=== PATIENT | female | born 1975 | race African-American/Black ===

== ENCOUNTER 2020-03-20 01:50 | Inpatient (IN) ==
[2020-03-20] MEDS ORDERED: ONDANSETRON 4 MG/2 ML VIAL IV STA (02:10)
[2020-03-20] MEDS ORDERED: ONDANSETRON 4 MG/2 ML VIAL ONE (02:10)
[2020-03-20] MEDS ORDERED: SODIUM CHLORIDE 0.9% 500 ML IV STA (02:19)
[2020-03-20 03:09] LABS: Alanine Aminotransferase 56 U/L (13-56); Albumin 3.5 G/DL (3.4-5.0); Alkaline Phosphatase 57 U/L (45-117); Aspartate Amino Transferase 42 U/L (0-37); Bilirubin,Total < 0.39 MG/DL (0.2-1.0); Blood Urea Nitrogen 18 MG/DL (7-18); Calcium 9.3 MG/DL (8.5-10.1); Estimated Glom Filtration Rate 78 ML/MIN; Glucose 271 MG/DL (74-106); Osmolality,Calculated 281.1 MOS/KG (273-304); Total Protein 7.8 G/DL (6.4-8.3); Troponin I < 0.015 NG/ML (0.00-0.045)
[2020-03-20] MEDS ORDERED: SODIUM CHLORIDE 0.9% 1,000 ML IV STA (03:11)
[2020-03-20] MEDS ORDERED: VANCOMYCIN INJ 1,000 MG in SODIUM CHLORIDE 0.9% 250 ML IV STA (03:11)
[2020-03-20 03:40] LABS: Barbiturates Screen,Urine Negative (Negative); Benzodiazepines Screen,Urine Negative (Negative); Cannabinoid Screen,Urine Negative (Negative); Opiate Screen,Urine Negative (Negative); Phencyclidine Screen,Urine Negative (Negative)
[2020-03-20 03:44] LABS: Bacteria,Urine Occasional /HPF (Few); Granular Casts,Urine 1 /LPF (0-1); Hyaline Casts,Urine 25 /LPF (0-3); Mucus,Urine Occasional /LPF (Occasional); RBC,Urine <1 /HPF (0-4); Squamous Epithelial Cell,Urine Occasional /HPF (0-10); WBC,Urine 1 /HPF (0-6)
[2020-03-20 03:47] LABS: Apearance,Urine Clear (Clear); Urine Color Light Yellow (Yellow)
[2020-03-20 03:48] LABS: Glucose,Urine (UA) Negative (Negative); Protein,Urine 30 MG/DL
[2020-03-20 04:00] LABS: Basophils % 0.1 % (0.0-0.8); Hematocrit 36.3 VOL% (35.7-47.0); Hemoglobin 11.8 GM/DL (12.0-16.0); Immature Granulocytes % 1.4 %; Immature Granulocytes Absolute 0.23 #; Lymphocytes # 1.4 10*3/uL (1.4-4.0); Lymphocytes % 8.2 % (21.3-54.2); Mean Corpuscular HGB Conc 32.5 GM/DL (32-36); Mean Corpuscular Volume 91.2 FL (87-102); Mean Platelet Volume 10.4 FL (9.6-12.0); Monocytes % 4.7 % (1.7-12.7); NRBC # 0.02 10*3/uL; Neutrophils % 85.6 % (38.7-73.9); Platelet Count 256 T/CUMM (130-400); Red Blood Count 3.98 MC/CUMM (3.8-5.5); Red Cell Distribution Width 12.3 % (9.3-17.3); White Blood Count 16.4 T/CUMM (4-12)
[2020-03-20 04:01] LABS: Bilirubin,Urine Negative (Negative); Blood, Urine 50 mg/dL (Negative); Nitrite,Urine Negative (Negative); Urine Urobilinogen < 0.2 EU/DL (0.2-1.0)
[2020-03-20 05:06] LABS: Platelet Estimate Adequate
[2020-03-20] MEDS ORDERED: ACETAMINOPHEN 325 MG TABLET PO PRN (05:21)
[2020-03-20] MEDS ORDERED: DEXTROSE 50% 25 GM/50 ML VIAL IV PRN (05:21)
[2020-03-20] MEDS ORDERED: GLUCAGON 1 MG VIAL IM PRN (05:21)
[2020-03-20] MEDS ORDERED: ONDANSETRON 4 MG/2 ML VIAL IV PRN (05:21)
[2020-03-20] MEDS ORDERED: LORazepam 2 MG/1 ML VIAL IV PRN (05:21)
[2020-03-20] MEDS ORDERED: MORPHINE 4 MG/1 ML VIAL IV PRN (05:21)
[2020-03-20] MEDS ORDERED: VANCOMYCIN INJ 1,000 MG in SODIUM CHLORIDE 0.9% 250 ML IV ONE (06:30)
[2020-03-20] MEDS: SODIUM CHLORIDE 0.9% 1,000 ML IV SCH ×3 (07:35→20:38)
[2020-03-20] MEDS: INSULIN REGULAR 100 UNIT/ML SUBCUT SCH ×4 (08:07→23:18)
[2020-03-20] MEDS: PANTOPRAZOLE 40 MG TABLET PO SCH (09:00)
[2020-03-20 11:02] LABS: Apearance,Urine Slightly Hazy (Clear); Bacteria,Urine Occasional /HPF (Few); Bilirubin,Urine Negative (Negative); Blood, Urine Negative (Negative); Glucose,Urine (UA) Negative (Negative); Ketones,Urine Negative (Negative); Mucus,Urine Occasional /LPF (Occasional); Nitrite,Urine Negative (Negative); Protein,Urine Negative; RBC,Urine 1 /HPF (0-4); Squamous Epithelial Cell,Urine Occasional /HPF (0-10); Urine Color Straw (Yellow); Urine Specific Gravity 1.011 (1.001-1.035); Urine Urobilinogen < 2.0 EU/DL (0.2-1.0); WBC,Urine 1 /HPF (0-6)
[2020-03-20] MEDS: levETIRAcetam 500 MG TABLET PO SCH ×2 (13:09→20:12)
[2020-03-20] MEDS: DOCUSATE SODIUM 100 MG CAPSULE PO SCH ×2 (13:14→20:11)
[2020-03-20] MEDS ORDERED: VANCOMYCIN INJ 2,000 MG in SODIUM CHLORIDE 0.9% 500 ML IV SCH (21:00)
[2020-03-21] MEDS: SODIUM CHLORIDE 0.9% 1,000 ML IV SCH (04:27)
[2020-03-21] MEDS: INSULIN REGULAR 100 UNIT/ML SUBCUT SCH ×3 (05:40→17:39)
[2020-03-21 05:46] LABS: Basophils % 0.1 % (0.0-0.8); Eosinophils # 0.1 10*3/uL (0.0-0.87); Eosinophils % 1.1 % (0.00-10.9); Hematocrit 32.1 VOL% (35.7-47.0); Hemoglobin 10.3 GM/DL (12.0-16.0); Immature Granulocytes % 0.5 %; Immature Granulocytes Absolute 0.05 #; Lymphocytes # 1.7 10*3/uL (1.4-4.0); Lymphocytes % 17.9 % (21.3-54.2); Mean Corpuscular HGB Conc 32.1 GM/DL (32-36); Mean Corpuscular Volume 92.2 FL (87-102); Mean Platelet Volume 10.5 FL (9.6-12.0); Monocytes % 3.9 % (1.7-12.7); Neutrophils % 76.5 % (38.7-73.9); Platelet Count 217 T/CUMM (130-400); Red Blood Count 3.48 MC/CUMM (3.8-5.5); White Blood Count 9.4 T/CUMM (4-12)
[2020-03-21 06:00] LABS: Albumin 2.8 G/DL (3.4-5.0); Bilirubin,Total 0.8 MG/DL (0.2-1.0); Calcium 8.4 MG/DL (8.5-10.1); Osmolality,Calculated 277.5 MOS/KG (273-304); Risk Ratio 3.8; Total Protein 6.5 G/DL (6.4-8.3); VLDL CHOLESTEROL 36.2 MG/DL
[2020-03-21] MEDS: methylPREDNISolone SOD SUC 40 MG/1 ML VIAL IV SCH ×2 (08:59→17:42)
[2020-03-21] MEDS: DOCUSATE SODIUM 100 MG CAPSULE PO SCH ×2 (09:00→21:39)
[2020-03-21] MEDS: levETIRAcetam 500 MG TABLET PO SCH ×2 (09:00→21:39)
[2020-03-21] MEDS: POTASSIUM CHLORIDE 8 MEQ CAPSULE PO SCH ×2 (09:00→21:39)
[2020-03-21] MEDS: SODIUM CHLOR 0.9% KCL 20 MEQ 20 MEQ/1,000 ML BAG IV SCH ×3 (09:00→21:43)
[2020-03-21] MEDS: PANTOPRAZOLE 40 MG TABLET PO SCH (09:00)
[2020-03-21 13:12] LABS: PT Patient Result 11.2 SECS (9.8-11.9)
[2020-03-21 14:51] LABS: Glucose,CSF 86 MG/DL (40-70)
[2020-03-21 15:12] LABS: Lymphocytes,CSF 50 %; Monocytes,CSF 40 %; Neutrophils,CSF 10 %
[2020-03-21 15:13] LABS: Appearance,CSF Clear; Red Blood Cell,CSF < 1 C/CUMM; White Blood Cell,CSF 13 C/CUMM
[2020-03-22] MEDS: INSULIN REGULAR 100 UNIT/ML SUBCUT SCH ×3 (00:28→12:36)
[2020-03-22] MEDS: methylPREDNISolone SOD SUC 40 MG/1 ML VIAL IV SCH ×2 (01:48→08:36)
[2020-03-22 04:31] LABS: Basophils % 0.1 % (0.0-0.8); Hematocrit 33.6 VOL% (35.7-47.0); Hemoglobin 10.6 GM/DL (12.0-16.0); Immature Granulocytes % 1.2 %; Immature Granulocytes Absolute 0.12 #; Lymphocytes # 0.9 10*3/uL (1.4-4.0); Mean Corpuscular HGB Conc 31.5 GM/DL (32-36); Mean Corpuscular Volume 92.1 FL (87-102); Mean Platelet Volume 10.8 FL (9.6-12.0); Monocytes % 1.9 % (1.7-12.7); NRBC # 0.03 10*3/uL; Neutrophils % 87.8 % (38.7-73.9); Platelet Count 231 T/CUMM (130-400); Red Blood Count 3.65 MC/CUMM (3.8-5.5); Red Cell Distribution Width 12.6 % (9.3-17.3); White Blood Count 10.4 T/CUMM (4-12)
[2020-03-22 04:51] LABS: Albumin 2.8 G/DL (3.4-5.0); Calcium 8.7 MG/DL (8.5-10.1); Osmolality,Calculated 277.7 MOS/KG (273-304); Total Protein 6.7 G/DL (6.4-8.3)
[2020-03-22] MEDS: SODIUM CHLOR 0.9% KCL 20 MEQ 20 MEQ/1,000 ML BAG IV SCH ×2 (05:37→09:44)
[2020-03-22] MEDS: levETIRAcetam 500 MG TABLET PO SCH (08:35)
[2020-03-22] MEDS: DOCUSATE SODIUM 100 MG CAPSULE PO SCH (08:36)
[2020-03-22] MEDS: PANTOPRAZOLE 40 MG TABLET PO SCH (08:36)
[2020-03-22] MEDS ORDERED: OLMESARTAN 20 MG TABLET PO SCH (09:00)
[2020-03-22] MEDS ORDERED: hydroCHLOROthiazide 25 MG TABLET PO SCH (09:00)
[2020-03-22 12:11] VITALS: BP 141/82
[2020-03-23 11:49] LABS: Cryptococcus Ag Screen (MAYO) Negative (Negative)
[2020-03-23 12:10] LABS: VDRL Spinal Fluid Negative (Negative)
[2020-03-25 12:14] LABS: West Nile Virus Ab, IgG, CSF Negative (Negative); West Nile Virus Ab, IgM, CSF Negative (Negative)
== END 2020-03-22 16:04 | disposition home or self-care (01) | DRG 89 ==
LOC: EDUNIT# → EDBD → N.ED 01:50 → N.EDINP 04:20 → N.TELEN 14:16
PROVIDERS: ADMIT Family Medicine; ATTEND Family Medicine

== ENCOUNTER 2022-05-11 05:07 | Observation (INO) ==
[2022-05-05 11:42] LABS: Basophils % 0.2 % (0.0-0.8); Eosinophils % 0.7 % (0.00-10.9); Hematocrit 35.1 VOL% (35.7-47.0); Hemoglobin 11.2 GM/DL (12.0-16.0); Immature Granulocytes % 0.5 %; Immature Granulocytes Absolute 0.03 #; Lymphocytes # 1.5 10*3/uL (1.4-4.0); Lymphocytes % 27.8 % (21.3-54.2); Mean Corpuscular HGB Conc 31.9 GM/DL (32-36); Mean Corpuscular Volume 92.6 FL (87-102); Mean Platelet Volume 11.5 FL (9.6-12.0); Monocytes # 0.3 10*3/uL (0.11-0.8); Monocytes % 4.5 % (1.7-12.7); Neutrophils % 66.3 % (38.7-73.9); Platelet Count 231 T/CUMM (130-400); Red Blood Count 3.79 MC/CUMM (3.8-5.5); Red Cell Distribution Width 12.2 % (9.3-17.3); White Blood Count 5.5 T/CUMM (4-12)
[2022-05-05 11:51] LABS: Albumin 3.6 G/DL (3.4-5.0); Bilirubin,Total 0.4 MG/DL (0.20-1.00); Calcium 9.2 MG/DL (8.5-10.1); Osmolality,Calculated 282.4 MOS/KG (273-304); Potassium 3.8 MMOL/L (3.5-5.1); Risk Ratio 4.31; Total Protein 6.9 G/DL (6.4-8.2); VLDL Cholesterol 42.6 MG/DL
[2022-05-05 11:59] LABS: Mucus,Urine Few /LPF (Occasional); RBC,Urine <1 /HPF (0-4); Squamous Epithelial Cell,Urine Occasional /HPF (0-10); Urine Appearance Clear (Clear); Urine Color Yellow (Yellow); Urine Specific Gravity 1.025 (1.001-1.035)
[2022-05-05 12:00] LABS: Bilirubin,Urine Negative (Negative); Blood, Urine Negative (Negative); Glucose,Urine (UA) Negative (Negative); Ketones,Urine Negative (Negative); Nitrite,Urine Negative (Negative); Protein,Urine Negative (Negative); Urine Urobilinogen 0.2 eU/dL (<2.0)
[2022-05-05 12:39] LABS: HIV Antigen/Antibody Result Nonreactive (Nonreactive)
[2022-05-11] MEDS ORDERED: CLINDAMYCIN INJ 900 MG/50 ML PREMIX IV ONE (06:00)
[2022-05-11] MEDS ORDERED: LEVOFLOXACIN INJ 500 MG/100 ML PREMIX IV STA (06:11)
[2022-05-11] MEDS ORDERED: MIDAZOLAM 2 MG/2 ML VIAL ONE (06:40)
[2022-05-11] MEDS ORDERED: ROCURONIUM 50 MG/5 ML VIAL IV ONE (06:41)
[2022-05-11] MEDS ORDERED: propofoL 200 MG/20 ML VIAL IV ONE (06:41)
[2022-05-11] MEDS ORDERED: fentaNYL 100 MCG/2 ML VIAL ONE ×2 (06:41→08:27)
[2022-05-11] MEDS ORDERED: LIDOCAINE 2% 5 ML VIAL ONE (06:41)
[2022-05-11] MEDS ORDERED: ONDANSETRON 4 MG/2 ML VIAL ONE (06:41)
[2022-05-11] MEDS ORDERED: DIAZEPAM 5 MG TABLET PO ONE (06:48)
[2022-05-11] MEDS: LACTATED RINGERS 1,000 ML IV SCH ×4 (07:41→17:20)
[2022-05-11] MEDS ORDERED: DESFLURANE 1 UNIT/15 MINUTE INH ONE ×2 (08:06→08:23)
[2022-05-11] MEDS ORDERED: ACETAMINOPHEN INJ 1,000 MG/100 ML VIAL IV ONE (08:23)
[2022-05-11] MEDS ORDERED: SEVOFLURANE 1 UNIT/15 MINUTE INH ONE (08:23)
[2022-05-11] MEDS ORDERED: SUGAMMADEX 200 MG/2 ML VIAL IV ONE (08:40)
[2022-05-11] MEDS ORDERED: KETOROLAC 30 MG/1 ML VIAL ONE (09:00)
[2022-05-11 09:31] LABS: Bacteria,Urine Occasional /HPF (Few); Mucus,Urine Occasional /LPF (Occasional); RBC,Urine 1 /HPF (0-4); Squamous Epithelial Cell,Urine Occasional /HPF (0-10)
[2022-05-11 09:35] LABS: Urine Appearance Clear (Clear); Urine Color Yellow (Yellow)
[2022-05-11] MEDS ORDERED: HYDROmorphone 1 MG/1 ML SYRINGE IV PRN (09:35)
[2022-05-11] MEDS ORDERED: BISACODYL 10 MG SUPP RECTAL PRN (09:35)
[2022-05-11] MEDS ORDERED: ACETAMINOPHEN 325 MG TABLET PO PRN (09:35)
[2022-05-11] MEDS ORDERED: ONDANSETRON 4 MG/2 ML VIAL IV PRN (09:35)
[2022-05-11] MEDS ORDERED: BENZOCAINE/MENTHOL LOZENGE 18/BOX PO PRN (09:35)
[2022-05-11] MEDS ORDERED: MAGNESIUM HYDROXIDE SUSP 30 ML UDCUP PO PRN (09:35)
[2022-05-11 09:36] LABS: Bilirubin,Urine Negative (Negative); Blood, Urine Negative (Negative); Glucose,Urine (UA) Negative (Negative); Ketones,Urine Negative (Negative); Nitrite,Urine Negative (Negative); Protein,Urine Negative (Negative); Urine Specific Gravity > 1.030 (1.001-1.035); Urine Urobilinogen 0.2 eU/dL (<2.0)
[2022-05-11] MEDS: IBUPROFEN 800 MG TABLET PO PRN (17:15)
[2022-05-11 17:16] LABS: Eosinophils % 0.2 % (0.00-10.9); Hematocrit 30.8 VOL% (35.7-47.0); Hemoglobin 9.6 GM/DL (12.0-16.0); Immature Granulocytes % 0.2 %; Immature Granulocytes Absolute 0.02 #; Lymphocytes # 1.6 10*3/uL (1.4-4.0); Lymphocytes % 19.7 % (21.3-54.2); Mean Corpuscular HGB Conc 31.2 GM/DL (32-36); Mean Corpuscular Volume 93.6 FL (87-102); Mean Platelet Volume 11.2 FL (9.6-12.0); Monocytes # 0.3 10*3/uL (0.11-0.8); Monocytes % 4.2 % (1.7-12.7); Neutrophils % 75.7 % (38.7-73.9); Platelet Count 187 T/CUMM (130-400); Red Blood Count 3.29 MC/CUMM (3.8-5.5); Red Cell Distribution Width 12.5 % (9.3-17.3); White Blood Count 8.2 T/CUMM (4-12)
[2022-05-11] MEDS: CLINDAMYCIN INJ 900 MG/50 ML PREMIX IV SCH (17:23)
[2022-05-11] MEDS: levETIRAcetam 500 MG TABLET PO SCH (21:48)
[2022-05-12] MEDS: CLINDAMYCIN INJ 900 MG/50 ML PREMIX IV SCH (01:49)
[2022-05-12] MEDS: LACTATED RINGERS 1,000 ML IV SCH (03:08)
[2022-05-12 05:37] LABS: Basophils % 0.1 % (0.0-0.8); Eosinophils # 0.1 10*3/uL (0.0-0.87); Hematocrit 29.2 VOL% (35.7-47.0); Hemoglobin 9.3 GM/DL (12.0-16.0); Immature Granulocytes % 0.5 %; Immature Granulocytes Absolute 0.04 #; Lymphocytes # 0.7 10*3/uL (1.4-4.0); Lymphocytes % 8.8 % (21.3-54.2); Mean Corpuscular HGB Conc 31.8 GM/DL (32-36); Mean Platelet Volume 11.1 FL (9.6-12.0); Monocytes # 0.3 10*3/uL (0.11-0.8); Monocytes % 3.2 % (1.7-12.7); Neutrophils % 86.4 % (38.7-73.9); Platelet Count 160 T/CUMM (130-400); Red Blood Count 3.14 MC/CUMM (3.8-5.5); Red Cell Distribution Width 12.4 % (9.3-17.3); White Blood Count 8.1 T/CUMM (4-12)
[2022-05-12] MEDS: levETIRAcetam 500 MG TABLET PO SCH ×2 (08:06→21:40)
[2022-05-12] MEDS: DOCUSATE SODIUM 100 MG CAPSULE PO PRN ×2 (08:06→21:41)
[2022-05-12] MEDS: METOCLOPRAMIDE 10 MG TABLET PO SCH ×2 (08:06→17:01)
[2022-05-12] MEDS: IBUPROFEN 800 MG TABLET PO PRN (08:10)
[2022-05-13] MEDS: METOCLOPRAMIDE 10 MG TABLET PO SCH ×2 (03:35→08:34)
[2022-05-13] MEDS: LACTATED RINGERS 1,000 ML IV SCH (07:38)
[2022-05-13 08:20] VITALS: BP 119/70
[2022-05-13] MEDS: levETIRAcetam 500 MG TABLET PO SCH (08:33)
== END 2022-05-13 11:26 | disposition home or self-care (01) ==
LOC: N.OR 05:07 → N.SDSINP 05:08 → INTOOBSV 09:34 → N.SDSINP 09:34 → N.OB 10:13
PROVIDERS: ADMIT Obstetrics & Gynecology; ATTEND Obstetrics & Gynecology